=== PATIENT | female | born 1985 | race Caucasian/White ===

== ENCOUNTER → 2017-02-24 | Outpatient (CLI) | payer OTHER | END | disposition home or self-care (01) | LOC: RAD 08:42 | DX: S73.102A Unspecified sprain of left hip, initial encounter (principal); X58.XXXA Exposure to other specified factors, initial encounter; Y93.9 Activity, unspecified; Y92.89 Other specified places as the place of occurrence of the external cause; Y99.9 Unspecified external cause status ==

== ENCOUNTER 2017-04-05 05:19 | Observation (INO) | payer OTHER ==
[~2017-04-05] VITALS: Ht 160 cm; Wt 79.4 kg
[~2017-04-05 05:19] MED LIST: ACCUNEB SO1.25 MG/1 INH; HYDROCODONE-AP1 EAC6 PO; METHOCARBAMOL500 M2 PO; REQUIP 0.25 M0.25 M1 PO; TOPAMAX 100 MG100 MG PO
[2017-04-05 07:30] VITALS: BP 136/95
[2017-04-05 13:30] VITALS: BP 119/78
[2017-04-05 14:48] VITALS: BP 104/67
[2017-04-05 18:53] VITALS: BP 108/75
[2017-04-05 23:43] VITALS: BP 103/60
[2017-04-06 04:00] VITALS: BP 98/53
[2017-04-06 07:10] VITALS: BP 123/83
[2017-04-06 10:27] VITALS: BP 123/83
== END 2017-04-06 11:25 | disposition home or self-care (01) ==
LOC: TBA 05:19 → OR 05:19 → 5S 13:20 → OR 13:20 → 5S 04-06 11:25
DX: M54.16 Radiculopathy, lumbar region (principal); M25.552 Pain in left hip; Z96.642 Presence of left artificial hip joint; S93.492A Sprain of other ligament of left ankle, initial encounter; X58.XXXA Exposure to other specified factors, initial encounter; Y93.89 Activity, other specified; Y92.89 Other specified places as the place of occurrence of the external cause; Y99.8 Other external cause status
CPT/HCPCS: 47335; 50010; 50101; 50386; 50612; 51538; 52298; 52304; 53340; 55430; 56524; 56525; 56527; 57092; 62110; 62900; 70005

== ENCOUNTER 2017-11-14 18:17 | Emergency (ER) | payer OTHER ==
[~2017-11-14] VITALS: Ht 160 cm; Wt 69.4 kg
--- NOTE | ~2017-11-14 | EKG ---
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
[2017-11-14] MEDS ORDERED: RESTORIL30 MG PO (18:49)
[2017-11-14] MEDS ORDERED: OXYCODONE HCL10 MG PO (18:49)
[2017-11-14 19:19] LABS: ABSOLUTE NEUTROPHILS 8.8 thou/uL (1.4-8.2); BASOPHILS 0.4 % (0.0-2.0); EOSINOPHILS 0.5 % (0.0-3.0); HEMATOCRIT 48.6 % (37.0-47.0); LYMPHOCYTES 12.7 % (24.0-44.0); MCH 30.5 pg (26.0-34.0); MCHC 34.9 g/dL (28.0-37.0); MCV 87.4 fL (80.0-100.0); MONOCYTES 4.7 % (1.0-8.0); PLATELET COUNT 223 thou/uL (150-400); POLYS 81.7 % (36.0-66.0); RBC 5.56 mil/uL (4.20-5.00); RDW 13.3 % (10.5-14.5); WBC 10.8 thou/uL (4.0-11.0)
[2017-11-14] MEDS ORDERED: ZOFRAN ODT8 MG PO ×2 (19:21→21:21)
[2017-11-14] MEDS ORDERED: PRILOSEC 20 MG20 MG PO ×2 (19:21→21:21)
[2017-11-14 19:28] LABS: ANION GAP 12 mmol/L (7-16); BUN 11 mg/dL (7-18); CALCIUM 9.4 mg/dL (8.5-10.1); CHLORIDE 102 mmol/L (98-107); CO2 27 mmol/L (21-32); GLUCOSE 111 mg/dL (74-106); SODIUM 141 mmol/L (136-145)
[2017-11-14 19:30] LABS: POTASSIUM 2.6 mmol/L (3.5-5.1)
[2017-11-14 19:36] LABS: SGOT 73 U/L (15-37); SGPT 141 U/L (30-65); TOTAL BILIRUBIN 1.5 mg/dL (<0.1-1.0); TOTAL PROTEIN 7.4 g/dL (6.4-8.2); TROPONIN-I < 0.04 ng/mL (<0.06)
[2017-11-14 19:51] LABS: ALBUMIN 4.5 g/dL (3.4-5.0); LIPASE 148 U/L (73-393)
[2017-11-14] MEDS ORDERED: POTASSIUM20 PO (19:58)
[2017-11-14 20:25] LABS: URINE BILIRUBIN NEGATIVE (Negative); URINE BLOOD NEGATIVE (Negative); URINE CLARITY CLEAR; URINE COLOR YELLOW; URINE GLUCOSE-RANDOM* NEGATIVE (Negative); URINE KETONES 1+ (Negative); URINE LEUKOCYTES-REFLEX NEGATIVE (Negative); URINE NITRITE-REFLEX NEGATIVE (Negative); URINE PROTEIN (DIPSTICK) NEGATIVE (Negative); URINE SPECIFIC GRAVITY 1.015 (1.005-1.035)
[2017-11-14] MEDS ORDERED: PROMS25 WY RECTAL (21:21)
[2017-11-14 21:34] VITALS: BP 136/72
== END 2017-11-14 21:35 | disposition home or self-care (01) ==
LOC: ER 18:17
PROVIDERS: Emergency Medicine
DX: E86.0 Dehydration (principal); E87.6 Hypokalemia; J45.909 Unspecified asthma, uncomplicated; Z87.442 Personal history of urinary calculi; Z88.1 Allergy status to other antibiotic agents; Z88.8 Allergy status to other drugs, medicaments and biological substances

== ENCOUNTER 2017-11-16 22:07 | Emergency (ER) | payer OTHER ==
[~2017-11-16] VITALS: Ht 160 cm; Wt 69.4 kg
[~2017-11-16 22:07] MED LIST changes: +OXYCODONE HCL10 MG PO; +POTASSIUM20 PO; +PRILOSEC 20 MG20 MG PO; +PROMS25 WY RECTAL; +RESTORIL30 MG PO; +ZOFRAN ODT8 MG PO
[2017-11-16 22:31] LABS: HEMATOCRIT 48.4 % (37.0-47.0); HEMOGLOBIN 17.2 gm/dL (12.0-15.0); MCH 30.5 pg (26.0-34.0); MCHC 35.5 g/dL (28.0-37.0); RBC 5.63 mil/uL (4.20-5.00); RDW 13.2 % (10.5-14.5); WBC 13.8 thou/uL (4.0-11.0)
[2017-11-16 22:42] LABS: CALCIUM 9.3 mg/dL (8.5-10.1); CREATININE 0.8 mg/dL (0.6-1.0)
[2017-11-16 22:43] LABS: POTASSIUM 2.9 mmol/L (3.5-5.1)
[2017-11-16 22:48] LABS: ALBUMIN 4.5 g/dL (3.4-5.0); TOTAL BILIRUBIN 1.5 mg/dL (<0.1-1.0); TOTAL PROTEIN 7.4 g/dL (6.4-8.2)
[2017-11-17] MEDS ORDERED: REGLAN 10 MG TA10 MG PO (01:17)
[2017-11-17 02:44] VITALS: BP 149/75
== END 2017-11-17 02:45 | disposition home or self-care (01) ==
LOC: ER 22:07
PROVIDERS: Emergency Medicine
DX: R11.2 Nausea with vomiting, unspecified (principal); R10.11 Right upper quadrant pain; J45.909 Unspecified asthma, uncomplicated; Z87.442 Personal history of urinary calculi; Z88.1 Allergy status to other antibiotic agents; Z88.8 Allergy status to other drugs, medicaments and biological substances

== ENCOUNTER 2017-11-17 22:22 | Inpatient (IN) | payer OTHER ==
[~2017-11-17] VITALS: Ht 160 cm; Wt 70.4 kg
--- NOTE | ~2017-11-17 | HC ---
[facility] [place] [address] CONSULTATION Name: MICHELLE PAIZ Room #: 401-I [facility] [place] .R.#: [id number] Admission: 11/17/17 Attend Phys: Ramírez Barajas MD Discharge: 11/19/17 Date of : [birth year] Report #: [id number] THIS REPORT FOR: //name// CC: Roxanna Barajas MD DATE OF SERVICE: 11/19/2017 HISTORY OF PRESENT ILLNESS: The patient is a 32-year-old female with new onset nausea, vomiting, abdominal pain which was primarily midepigastric and right upper quadrant, beginning last week. No previous symptoms similar. She denies any fevers or chills. No chest pain or shortness of breath. No dysphagia or odynophagia. Her bowel movements have been normal. She denies any diarrhea or constipation or blood in her stools. She was having nausea and vomiting on a daily basis and unable to keep anything down. She was in the Emergency Room 3 times. Apparently, she has now undergone a CT scan of the abdomen and pelvis and ultrasound as well as a PIPIDA scan, all of which were normal. PIPIDA scan, ejection fraction was normal at 71% and there was no reproduction of her symptoms. She was trying different antinausea medications and pain medications at home without much benefit. She is now much improved. She is actually able to eat something this morning and plan for possible discharge later today. She denies any recent new medications. She denies any NSAIDs. No significant heartburn history, dysphagia or odynophagia. Her weight prior to this was stable. ECG was negative. PAST MEDICAL HISTORY: Asthma, restless legs syndrome, previous left hip surgery x 2. ALLERGIES: ADHESIVES, DOXYCYCLINE, ERYTHROMYCIN, METRONIDAZOLE, NITROFURANTOIN, SULFA AND BACTRIM. SOCIAL HISTORY: She denies any tobacco or alcohol use. FAMILY HISTORY: Negative for colon cancer or inflammatory bowel disease. MEDICATIONS: Prior to this happening was Topamax and Requip. REVIEW OF SYSTEMS: As per HPI. PHYSICAL EXAMINATION: VITAL SIGNS: Temperature is 97.8, pulse 90, blood pressure 139/80, respiratory rate is 20. GENERAL: She is alert and oriented x 3 in no acute distress. HEENT: Sclerae nonicteric. Oropharynx clear. NECK: Supple without lymphadenopathy. [facility] [address] [place] [address] CONSULTATION Name: MICHELLE PAIZ Room #: 401-I [facility] [place] ..#: [id number] Admission: 11/17/17 Attend Phys: Ramírez Barajas MD Discharge: 11/19/17 Date of : 83 Report #: [id number] HEART: Regular rate and rhythm. CHEST: Clear to auscultation bilaterally. ABDOMEN: Soft. She is nontender, nondistended, normoactive bowel sounds. EXTREMITIES: No cyanosis, clubbing or edema. LABORATORY DATA: Sodium 139, potassium 3.0, chloride 103, bicarbonate 27, BUN 4, creatinine 0.7, glucose 113. AST is 19, it was high at 73. Lipase 122. Total bilirubin 1.4, direct is 0.3; alkaline phosphatase 67; ALT 81, high was 178. Total protein 6.4, albumin 3.7. WBC is 7.8, hemoglobin 15.3, platelet count 228. ASSESSMENT AND PLAN: Nausea, vomiting and abdominal pain. Etiology is unclear. The patient did have a mild elevation in her liver function tests, which have almost normalized at this time. CT ultrasound and PIPIDA were all normal including no reproduction of abdominal pain or symptoms with CCK injection. I would recommend proceeding with an upper endoscopy in the near future to rule out the possibility of peptic ulcer disease and other etiologies. It is possible the patient could have had a viral gastroenteritis, although she is not febrile and her white count is normal at this time. Diarrhea was not a component as well. Could consider the possibility of cyclic vomiting syndrome, but again this is her first episode. Would need to observe for recurrent episodes in the future. We will make further recommendations after endoscopy. Thank you for allowing me to participate in her care. <ELECTRONICALLY SIGNED> By: Leo Corrales MD 11/22/17 0821 1230 1909 Leo Corrales MD /nt
--- NOTE | ~2017-11-17 | HC ---
[facility] [place] [address] CONSULTATION Name: MICHELLE PAIZ Room #: 401-I ADM IN ..#: [id number] Admission: 11/17/17 Attend Phys: Ramírez Barajas MD Discharge: Date of : 83 Report #: [id number] THIS REPORT FOR: //name// CC: Ramírez Barajas DATE OF SERVICE: 11/18/2017 REFERRING PROVIDER: Dr. Ramírez Barajas. REASON FOR CONSULT: Abdominal pain, nausea and vomiting. HISTORY OF PRESENT ILLNESS: The patient is a 32-year-old female who has presented to the Emergency Room yesterday for the third time in 6 days with severe sudden onset nausea and vomiting and intermittent crampy epigastric to right upper quadrant abdominal pain. The patient has undergone a thorough workup thus far including labs and ultrasound of the abdomen. However, she did decline a CT scan at her most recent Emergency Room visit. The patient's labs have shown hemoconcentration and hypokalemia, although her total bilirubin was slightly elevated at 1.5 and her transaminases were elevated as well. The patient's ultrasound of her abdomen showed unremarkable findings with no calcifications or gallbladder wall abnormality. As the patient's symptoms continued, she presented to the Emergency Room for a thorough evaluation, whereby she has now been admitted for definitive management and evaluation. A CT scan of the abdomen and pelvis performed just recently showed a nonobstructing left nephrolithiasis as well as no inflammatory process otherwise. Because of her upper abdominal pain, nausea and vomiting, I am asked to evaluate. PAST MEDICAL HISTORY: Numerous kidney stones, status post lithotripsy. She has undergone left rotator cuff repair, left hip arthroscopy, wisdom tooth extraction, 5 D and C's endometrial ablation, bilateral carpal tunnel. She has asthma and restless legs syndrome. HOME MEDICATIONS: Topamax, albuterol and Requip. ALLERGIES: Extensive and include, DOXYCYCLINE, ERYTHROMYCIN, FLAGYL, SULFA, NITROFURANTOIN and ADHESIVES, all of which cause itching and hives only. FAMILY HISTORY: Reviewed and noncontributory. SOCIAL HISTORY: The patient does not utilize tobacco, alcohol or illicit drugs. REVIEW OF SYSTEMS: GENERAL: The patient denies nocturnal fevers or chills. HEENT: No change in vision, change in hearing. NECK: No swelling or difficulty swallowing. [address] [address] CONSULTATION Name: MICHELLE PAIZ Room #: 401-I [facility] IN M.R.#: [id number] Admission: 11/17/17 Attend Phys: Ramírez Barajas MD Discharge: Date of : 83 Report #: [id number] HEART: No chest pain, palpitations. LUNGS: No cough or shortness of breath. ABDOMEN: Abdominal pain with nausea and vomiting. GENITOURINARY: No dysuria or hematuria. ENDOCRINE: No polyuria, polydipsia. HEMATOLOGIC: No history of bleeding or easy bruising. EXTREMITIES: No history of weakness or limited range of motion. NEUROLOGIC: No history of syncope or near syncopal episodes. SKIN AND INTEGUMENT: No history of abnormal lesions or moles. PSYCHIATRIC: No history of anxiety or depression. PHYSICAL EXAMINATION: VITAL SIGNS: Temperature 98.4, pulse 98, respirations 16, blood pressure 136/90. She stands 5 feet 3 inches tall and weighs 155 pounds. GENERAL: Alert and oriented, in minimal distress. HEENT: Normocephalic, atraumatic. Pupils equal, round, reactive to light. NECK: Supple, without lymphadenopathy. Trachea midline. HEART: Regular rate and rhythm. LUNGS: Clear to auscultation bilaterally. ABDOMEN: Soft, nondistended. She does have minimal tenderness to palpation in the epigastrium and right upper quadrant without rebound, guarding or peritoneal signs or symptoms. GENITOURINARY: Normal external female genitalia. EXTREMITIES: No clubbing, cyanosis or edema. NEUROLOGIC: Cranial nerves 2-12 are grossly intact. PSYCHIATRIC: Normal mood and affect. SKIN AND INTEGUMENT: No abnormal lesions or moles. LABORATORY AND X-RAY DATA: CBC shows white blood cell count of 9.3 thousand, hemoglobin 16.7, platelets 220,000. Creatinine 0.8. LFTs are elevated with a total bilirubin of 1.7, ALT is 130, AST is 27 and alkaline phosphatase is 81. Ultrasound of the abdomen is unremarkable. CT scan of the abdomen and pelvis as well is unremarkable with the exception of a nonobstructing left nephrolithiasis. ASSESSMENT AND PLAN: A 32-year-old female with intractable nausea, vomiting and intermittent right upper quadrant epigastric abdominal pain. This is highly suggestive of a biliary source, especially in light of her elevated liver function enzymes and as such, I will request a PIPIDA scan to be done today to evaluate further. Should the patient have a decreased gallbladder ejection fraction or have reproduction of symptoms upon injection of cholecystokinin, she will necessitate laparoscopic cholecystectomy for definitive management. If her PIPIDA scan is normal with no abnormality whatsoever, she may necessitate Gastroenterology consultation for possible upper endoscopy as this could be a peptic ulcer disease, although that is significantly much less likely. Therefore, we will proceed with a PIPIDA and proceed as delineated above. [facility] [address] [place] [address] CONSULTATION Name: MICHELLE PAIZ Room #: 401-I ADM IN M.R.#: [id number] Admission: 11/17/17 Attend Phys: Ramírez Barajas MD Discharge: Date of : 83 Report #: [id number] I sincerely appreciate this consult. I will follow closely and leave any further recommendations in the patient's chart as appropriate. <ELECTRONICALLY SIGNED> By: Roxanna Villa MD, FACS 11/19/17 1041 1258 2131 Roxanna Villa MD, FACS /nt
[~2017-11-17 22:22] MED LIST changes: +REGLAN 10 MG TA10 MG PO
[2017-11-17 22:24] VITALS: BP 183/111
[2017-11-17 23:01] LABS: HEMATOCRIT 47.5 % (37.0-47.0); HEMOGLOBIN 16.7 gm/dL (12.0-15.0); MCH 30.6 pg (26.0-34.0); MCHC 35.2 g/dL (28.0-37.0); MCV 86.9 fL (80.0-100.0); RBC 5.46 mil/uL (4.20-5.00); RDW 13.2 % (10.5-14.5); WBC 9.3 thou/uL (4.0-11.0)
[2017-11-17 23:10] LABS: CALCIUM 8.6 mg/dL (8.5-10.1); CREATININE 0.8 mg/dL (0.6-1.0); POTASSIUM 3.2 mmol/L (3.5-5.1)
[2017-11-17 23:16] LABS: ALBUMIN 4.2 g/dL (3.4-5.0); DIRECT BILIRUBIN 0.3 mg/dL (<0.1-0.3); TOTAL BILIRUBIN 1.7 mg/dL (<0.1-1.0); TOTAL PROTEIN 7.2 g/dL (6.4-8.2)
[2017-11-17 23:40] VITALS: BP 183/111
[2017-11-17 23:45] VITALS: BP 183/108
[2017-11-18 00:17] VITALS: BP 142/82
[2017-11-18 04:00] VITALS: BP 139/84
[2017-11-18 08:37] VITALS: BP 136/90
[2017-11-18 18:24] VITALS: BP 141/85
[2017-11-19 04:00] VITALS: BP 136/83
[2017-11-19 04:08] LABS: HEMATOCRIT 44.1 % (37.0-47.0); HEMOGLOBIN 15.3 gm/dL (12.0-15.0); MCH 30.3 pg (26.0-34.0); MCHC 34.7 g/dL (28.0-37.0); MCV 87.3 fL (80.0-100.0); RBC 5.05 mil/uL (4.20-5.00); RDW 13.3 % (10.5-14.5); WBC 7.8 thou/uL (4.0-11.0)
[2017-11-19 04:10] LABS: CALCIUM 8.5 mg/dL (8.5-10.1); CREATININE 0.7 mg/dL (0.6-1.0)
[2017-11-19 08:00] VITALS: BP 139/80
[2017-11-19 09:03] LABS: ALBUMIN 3.7 g/dL (3.4-5.0); DIRECT BILIRUBIN 0.3 mg/dL (<0.1-0.3); TOTAL BILIRUBIN 1.4 mg/dL (<0.1-1.0); TOTAL PROTEIN 6.4 g/dL (6.4-8.2)
[2017-11-19 13:02] VITALS: BP 139/80
== END 2017-11-19 14:15 | disposition home or self-care (01) | DRG 684 ==
LOC: ER 22:22 → EROBS 23:34 → 4N 23:45
PROVIDERS: Emergency Medicine; Family Medicine; Surgery
DX: N17.9 Acute kidney failure, unspecified (principal); R10.9 Unspecified abdominal pain; E87.6 Hypokalemia; J45.909 Unspecified asthma, uncomplicated; G25.81 Restless legs syndrome; R74.0 Nonspecific elevation of levels of transaminase and lactic acid dehydrogenase [LDH]; Z88.1 Allergy status to other antibiotic agents; Z88.2 Allergy status to sulfonamides; Z88.8 Allergy status to other drugs, medicaments and biological substances; Z87.442 Personal history of urinary calculi; Z79.899 Other long term (current) drug therapy
CPT/HCPCS: 10091

== ENCOUNTER → 2017-11-24 | Outpatient (CLI) | payer OTHER ==
[~2017-11-24] VITALS: Ht 160 cm; Wt 65.8 kg
--- NOTE | ~2017-11-24 | P ---
[facility] [place] [address] PROCEDURE REPORT Name: MICHELLE PAIZ [id number] Admission: 11/24/17 Attend Phys: Leo Rhoades Discharge: Date of : 83 Report #: [id number] THIS REPORT FOR: //name// CC: Leo Barajas MD DATE OF SERVICE: 11/24/2017 PROCEDURE PERFORMED: Upper endoscopy with biopsies. HISTORY OF PRESENT ILLNESS: The patient is a 32-year-old female with episodes of recurrent nausea, vomiting, and abdominal pain. She was actually hospitalized last week. Her workup has included a CT scan of the abdomen and pelvis as well as ultrasound and PIPIDA scan, all of which were negative including no reproduction of her symptoms with CCK injection. She has been on Zofran, Phenergan, and more recently Reglan on a p.r.n. basis, which has been somewhat helpful. She has improved. She apparently had an episode of vomiting after discharge times 1 and then once at work, but since then has improved. She denies any dysphagia. No previous history of upper endoscopy. PROCEDURE: The risks and benefits of the procedure were explained to the patient, those risks including, but not limited to bleeding, perforation, and the risk of sedation. She understood these risks and gave informed consent. Sedation was given using propofol per anesthesia. Next, using a standard Epitiron upper endoscope, the scope was placed in the patient's mouth and advanced under direct vision through the esophagus, stomach and into the second portion of the duodenum. The larynx was normal in appearance. The upper and mid esophagus was normal in appearance. At the distal esophagus at the GE junction, single erosion consistent with grade A erosive esophagitis was noted, otherwise normal. The gastric mucosa was normal. Biopsies were obtained to rule out H. pylori. The pylorus was normal and patent. The duodenal bulb, first and second portion were all normal. Biopsies were also obtained to rule out celiac sprue. The scope was then withdrawn and the procedure terminated. The patient tolerated the procedure well. IMPRESSION: 1. Mild grade A erosive esophagitis. 2. Otherwise, normal upper endoscopy. RECOMMENDATIONS: 1. We will start a trial of daily PPI therapy. 2. Await biopsy results. [address] [address] PROCEDURE REPORT Name: MICHELLE PAIZ Room #: REG [facility] Justin#: [id number] Admission: 11/24/17 Attend Phys: Leo Rhoades Discharge: Date of : 83 Report #: [id number] Thank you for allowing me to participate in her care. <ELECTRONICALLY SIGNED> By: Leo Corrales MD 12/04/17 0907 1038 1259 Leo Corrales MD /nt
--- NOTE | ~2017-11-24 | S ---
[facility] [place] [address] SURGICAL PATH RPT PROCEDURE Name: MICHELLE PERKINS Room #: REG [facility].#: [id number] Admission: 11/24/17 Date of : 83 Discharge: Report #: [id number] Path Case #: [id number] PATHOLOGY REPORT COLLECTION DATE: 11/24/2017 RECEIVED DATE: 11/24/2017 SUBMITTING PHYS: Dr. Leo Corrales OTHER PHYS: Dr. Ramírez Barajas SPECIMEN(S) RECEIVED: A.Duodenum B.Gastric * * * * * * * * * * * * FINAL DIAGNOSIS: A. Small bowel mucosa, duodenum, rule out sprue, endoscopic biopsy: - No diagnostic abnormalities present. B. Gastric mucosa, gastric rule out H. pylori, endoscopic biopsy: - Mild chronic inflammation. - Negative for intestinal metaplasia or atrophy. - Negative for Helicobacter pylori. COMMENT: Well-controlled Helicobacter pylori immunohistochemical stain performed on block B1 - negative. (IUV:mml; 11/27/2017) PATHOLOGIST: Caity Lopez M.D. REPORT ELECTRONICALLY SIGNED BY: Caity Lopez M.D. DATE/TIME: 11/27/2017 13:27 * * * * * * * * * * * * GROSS PATHOLOGY: A. Received in formalin labeled "Michelle Perkins, duodenal BX, rule out sprue," are 2 segments of srinivasan soft tissue measuring 1.0 x 0.4 x 0.3 cm in aggregate dimensions and ranging from 0.4 to 0.5 cm in maximum dimension. The specimen is submitted entirely in cassette A1. B. Received in formalin labeled "Michelle Perkins, gastric BX, rule out H. pylori," are 3 segments of srinivasan soft tissue measuring 1.4 x 0.8 x 0.3 cm in aggregate dimensions and ranging from 0.4 to 0.5 cm in maximum dimension. The specimen is submitted entirely in cassette B1. (TSD; 11/24/2017) CLINICAL HISTORY: Pre-OP DX: Hx of nausea, abdominal pain [address] [address] SURGICAL PATH RPT PROCEDURE Name: JANIE PERKINSA Mally Room #: REG [facility].#: [id number] Admission: 11/24/17 Date of : 83 Discharge: Report #: [id number] Path Case #: [id number] Post-OP DX: Nausea with vomiting INITIAL CPT CODE(S): A; 35158 B; 07718, 05997 Professional services performed by [facility] [address], [place] [address] Technical services performed by [facility] at [address] [place] [address], [facility] [address] [address]. [facility] [address] [place] [address] PHONE: [phone] DIRECTOR: Keaton Hampton M.D. * * * END OF REPORT * * *
== END | disposition home or self-care (01) ==
LOC: GI 08:16
DX: K29.40 Chronic atrophic gastritis without bleeding (principal); K22.10 Ulcer of esophagus without bleeding; G43.909 Migraine, unspecified, not intractable, without status migrainosus; J45.909 Unspecified asthma, uncomplicated; Z98.890 Other specified postprocedural states; Z87.442 Personal history of urinary calculi; Z79.899 Other long term (current) drug therapy; Z88.2 Allergy status to sulfonamides; Z88.0 Allergy status to penicillin; Z88.8 Allergy status to other drugs, medicaments and biological substances
CPT/HCPCS: 62110; 62900

== ENCOUNTER → 2018-05-02 | Outpatient (CLI) | payer OTHER | LOC: RAD 01:14 | DX: N63.10 Unspecified lump in the right breast, unspecified quadrant (principal); R92.8 Other abnormal and inconclusive findings on diagnostic imaging of breast ==

== ENCOUNTER 2018-09-17 05:19 | Day surgery (SDC) | payer OTHER ==
[2018-09-10 10:16] LABS: HEMATOCRIT 46.2 % (37.0-47.0); HEMOGLOBIN 15.8 gm/dL (12.0-15.0); MCH 29.9 pg (26.0-34.0); MCHC 34.1 g/dL (28.0-37.0); MCV 87.6 fL (80.0-100.0); RBC 5.27 mil/uL (4.20-5.00); RDW 12.6 % (10.5-14.5)
[2018-09-10 10:28] LABS: ALBUMIN 4.1 g/dL (3.4-5.0); CALCIUM 9.1 mg/dL (8.5-10.1); CREATININE 0.9 mg/dL (0.6-1.0); POTASSIUM 3.6 mmol/L (3.5-5.1)
[2018-09-10 10:38] LABS: PROTIME 10.7 Seconds (9.3-11.4)
[2018-09-10 11:07] LABS: URINE BILIRUBIN NEGATIVE (Negative); URINE BLOOD NEGATIVE (Negative); URINE CLARITY HAZY; URINE COLOR YELLOW; URINE GLUCOSE-RANDOM* NEGATIVE (Negative); URINE KETONES NEGATIVE (Negative); URINE LEUKOCYTES-REFLEX NEGATIVE (Negative); URINE NITRITE-REFLEX NEGATIVE (Negative); URINE PROTEIN (DIPSTICK) NEGATIVE (Negative); URINE SPECIFIC GRAVITY 1.015 (1.005-1.035); URINE UROBILINOGEN 0.2 E.U./dl (0.2-1.0)
[~2018-09-17] VITALS: Ht 160 cm; Wt 68.0 kg
--- NOTE | ~2018-09-17 | PATH ---
[facility] [address] [place] [address] PATHOLOGY RPT PROCEDURE Name: MICHELLE PERKINS Room #: DEP [facility] M.R.#: [id number] Admission: 09/17/18 Date of : 83 Discharge: 09/17/18 Report #: [id number] Path Case #: [id number] [facility] Accession Number: [id number] . 01 Material submitted: . LEFT FEMORAL HEAD . 01 Clinical history: . Left hip OA . 02 Diagnosis: Bone, left femoral head, total hip replacement: - Erosion and eburnation along with reactive chondro-osseous tissue, consistent with the provided history of osteoarthritis. - Marrow space showing trilineage hematopoiesis. (IUV/db; 09/18/18) LBQ/09/18/2018 . 02 Electronically signed: . Caity Lopez MD, Pathologist NPI- [id number] . 01 Gross description: . The specimen is received in formalin, labeled "Michelle Perkins, femoral head", is a femoral head (4.5 x 4.0 x 3.2 cm) with attached femoral neck, (1.5 cm in length by 3.5 x 2.4 cm). The neck resection margin is smooth, showing trabeculated bone. The articular surface is srinivasan-pink and smooth. A nair-white fibrous fovea is present measuring 3.2 x 1.7 x 0.7 cm. Sectioning of the femoral head reveals thining of the articular cartilage with the underlying bone srinivasan-red, trabeculated. Care Management Assistant tissue is submitted in A1 after decalcification. (Femoral neck = inked black) ([facility]; 09/17/2018) SHS/SHS . 02 Pathologist provided ICD-10: M16.12 . 02 CPT . 987506, 858545 Specimen Comment: A courtesy copy of this report has been sent to Specimen Comment: [phone], . Specimen Comment: Report sent to / DR BLOUNT Performed at: [address] [facility] [address] [id number] MD Brian Martinez MD Phone: [phone] Performed at: [address] [address] PATHOLOGY RPT PROCEDURE Name: MICHELLE PERKINS Room #: DEP [facility] M.R.#: [id number] Admission: 09/17/18 Date of : 83 Discharge: 09/17/18 Report #: [id number] Path Case #: [id number] [facility] [address], [place], [place] [id number] MD Caity Lopez MD Phone: [phone]
--- NOTE | ~2018-09-17 | O ---
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 PROCEDURE: Left total hip arthroplasty. SURGEON: Be Clarke MD COMMUNITY HEALTH EDUCATION COORDINATOR: Pau Carrion PA-C. ANESTHESIA: LMA. IMPLANTS: Size 11 Bocanegra and Nephew Synergy press fit stem, a size 52 R3 acetabular cup and a size 36 -3 Oxinium head. ESTIMATED BLOOD LOSS: 50 mL. COMPLICATIONS: None. SPECIMENS: The femoral head was sent for permanent pathology. CONDITION UPON LEAVING THE OPERATING ROOM: Stable. INDICATIONS FOR PROCEDURE: The patient is a 32-year-old female who has had a left hip femoroacetabular impingement. She has had two previous hip arthroscopies and has had continued groin and hip pain since. After a long discussion with her, she elected for left total hip arthroplasty as there were seemingly no other options given her MRI scan findings and x-ray findings. She did demonstrate degeneration of the hip joint. DESCRIPTION OF PROCEDURE: Risks, benefits, alternatives, complications were discussed in detail with the patient including but not limited to risk of anesthesia, risk of damage to nerves, arteries, blood vessels, risk for infection, bleeding, risk for continued hip pain, leg length discrepancy, instability and need for reoperation. Informed consent was obtained from the patient. Left hip was appropriately marked in the preoperative holding area. [address] [address] OPERATIVE REPORT Name: MICHELLE PAIZ Room #: 428-P REG [facility]#: [id number] Admission: 09/17/18 Attend Phys: Be Clarke MD Discharge: Date of : 83 Report #: [id number] Ancef was given for preoperative antibiotics. She was brought to the operating room and placed in the supine position on the operating room table. LMA anesthesia was induced without complication. She has been placed in the right lateral decubitus position with the left hip uppermost. Left hip and lower extremity were prepped and draped in normal sterile fashion. Timeout was performed properly identifying the patient and procedure as well as the instrumentation and implants. All in the operating room were in agreement. Standard posterior approach to the hip was made with a 10 blade through the skin. Dissection was taken down to the fascia with Bovie cautery and the fascia was cleaned off with Villa elevator. Fresh 10 blade was used to make a fascial incision. This was taken proximally and distally with curved Prado scissor. Charnley retractor was placed. Trochanteric bursa was taken down with Bovie cautery. The piriformis tendon was identified, tagged and taken down with Bovie. Short external rotators were also taken down with Bovie cautery. Capsulotomy was made and capsule ends were tagged for later repair. Hip was dislocated and femoral neck cut was made 1 cm proximal to lesser trochanter based on preoperative templating and the femoral head was removed. This was sent for permanent pathology. Deep acetabular retractors were placed and the labrum was removed sharply with a 10 blade. There were notable several suture anchors in the acetabular rim. In addition, there were demonstrated areas of arthritic change of the acetabulum that were likely contributing to her pain. Acetabulum was then sequentially reamed up to a size 52, at which point, there was excellent bleeding cancellous bone. This was trialed with a size 51 cup and found to have a good fit. A final size 52 R3 acetabular cup was then placed and seated. One acetabular screw was placed for backup fixation and polyethylene liner for 36 head was placed. Attention was then turned to the femur. This was reamed and broached up to a size 11, at which point, the size 11 broach was stable. This trialed with a 36 +0 head. Hip was reduced, taken through range of motion, found to be stable, found to have equal leg lengths. Hip was dislocated and the broach was removed and a final size 11 high offset Synergy press fit stem was placed. This did not seat quite as far as the broach and thus was trialed with a 36 -3 head. Hip was reduced, taken through range of motion, found to be stable, found to have equal leg lengths. Hip was dislocated one last time and a final size 36 -3 Oxinium head was placed. Hip was reduced, taken through range of motion, found to be stable, found to have equal leg lengths. The hip was thoroughly irrigated with normal saline. A periarticular injection consisting of morphine, ropivacaine, epinephrine and Toradol was placed around the hip joint capsule. A gram of vancomycin was placed deep in the joint. The capsule and piriformis were repaired with 0 FiberWire. Fascia was closed with 0 Vicryl, skin was closed with 2-0 Vicryl, 3-0 Monocryl. Dermabond and a DELBERT dressing was applied. The patient tolerated this procedure well and went to recovery room under care of Anesthesia postoperatively. <ELECTRONICALLY SIGNED> By: Be Clarke MD 09/17/18 1713 1128 1208 Be Clarke MD /nt
[~2018-09-17 05:19] MED LIST changes: +ADIPEX-P37.5 MG PO; +BENADRYL25 MG PO; +NORFLEX100 MG PO; +TRAZODONE HCL100 MG PO; +VENTOLIN HFA 1818 GM INH
[2018-09-17 08:22] VITALS: BP 132/81
[2018-09-17 13:46] VITALS: BP 134/81
[2018-09-17 15:35] VITALS: BP 130/71
[2018-09-17 17:08] VITALS: BP 130/71
== END 2018-09-17 17:26 | disposition home or self-care (01) ==
LOC: OR 05:19 → TBA 05:22 → OR 05:34 → 4E 13:50 → OR 14:02
PROVIDERS: Orthopaedic Surgery
DX: M16.12 Unilateral primary osteoarthritis, left hip (principal); M25.852 Other specified joint disorders, left hip; G43.909 Migraine, unspecified, not intractable, without status migrainosus; J45.909 Unspecified asthma, uncomplicated; Z87.442 Personal history of urinary calculi; Z98.890 Other specified postprocedural states; Z79.899 Other long term (current) drug therapy; Z88.2 Allergy status to sulfonamides; Z88.8 Allergy status to other drugs, medicaments and biological substances; Z79.891 Long term (current) use of opiate analgesic
CPT/HCPCS: 10783; 50010; 50101; 50382; 50414; 51771; 53000; 53078; 53368; 54118; 56524; 56527; 56528; 56530; 57095; 57103; 62110; 62900; 70005

== ENCOUNTER → 2018-11-02 | Outpatient (CLI) | payer OTHER | LOC: CAT 12:24 | DX: M25.552 Pain in left hip (principal); Z96.642 Presence of left artificial hip joint ==

== ENCOUNTER → 2021-11-17 | Outpatient (CLI) | payer OTHER | LOC: BC 11:22 → ULTRA 13:18 | PROVIDERS: ATTEND Family Medicine | DX: N60.01 Solitary cyst of right breast (principal); N64.4 Mastodynia; N63.20 Unspecified lump in the left breast, unspecified quadrant ==